=== PATIENT | female | born 1955 | race Caucasian/White ===

== ENCOUNTER 2016-09-08 10:00 | Inpatient (IN) ==
--- NOTE | 2016-09-08 10:51 | EKG Report ---
Stationary ECG Study [facility] ER Test Date: 09/08/2016 10:13:36 AM Pat Name: MATEO DONNELLY Department: Room: Gender: F Shiftman: : 1955 Requested by: Michael Tinoco Order Number: [id number] Reading MD: CORKY DIAZ Intervals [place] Rate: 63 P: 34 AR: 149 QRS: -7 QRSD: 82 T: 78 QT: 398 QTc: 405 Interpretive Statements SINUS RHYTHM LOW QRS VOLTAGE IN CHEST LEADS NONSPECIFIC T WAVE ABNORMALITY Electronically Signed On 09-08-16 18:43:42 CDT by CORKY DIAZ [id number]
[2016-09-08] MEDS ORDERED: NITROGLYCERIN 2% OINT 1 INCH/GM PACK TOP STA (11:01)
[2016-09-08] MEDS ORDERED: MORPHINE 2 MG/1 ML SYRINGE IV STA (11:01)
[2016-09-08] MEDS ORDERED: ASPIRIN 325 MG TABLET PO STA (11:01)
[2016-09-08] MEDS ORDERED: ONDANSETRON 4 MG/2 ML VIAL IV STA (11:01)
[2016-09-08] MEDS ORDERED: ALUM/MAG/SIMETH/LIDO VISC 1:1 30 ML BOTTLE PO STA (11:01)
[2016-09-08 11:14] LABS: Basophils % 0.3 % (0.0-0.8); Eosinophils # 0.1 10*3/uL (0.0-0.87); Eosinophils % 0.7 % (0.00-10.9); Hematocrit 42.1 VOL% (35.7-47.0); Hemoglobin 14.4 GM/DL (12.0-16.0); Immature Granulocytes % 0.1 %; Immature Granulocytes Absolute 0.01 #; Lymphocytes # 2.2 10*3/uL (1.4-4.0); Lymphocytes % 30.2 % (21.3-54.2); Mean Corpuscular HGB Conc 34.2 GM/DL (32-36); Mean Corpuscular Hemoglobin 29 PG (27-34); Mean Corpuscular Volume 83.4 FL (87-102); Mean Platelet Volume 9.4 FL (9.6-12.0); Monocytes # 0.8 10*3/uL (0.11-0.8); Monocytes % 10.6 % (1.7-12.7); Neutrophils # 4.2 10*3/uL (1.4-7.4); Neutrophils % 58.1 % (38.7-73.9); Platelet Count 228 T/CUMM (130-400); Red Blood Count 5.05 MC/CUMM (3.8-5.5); Red Cell Distribution Width 14.1 % (9.3-17.3); White Blood Count 7.3 T/CUMM (4-12)
--- NOTE | 2016-09-08 11:17 | Emergency Department Note ---
Eliot Mcrae Mantricia, am scribing for, and in the presence of, Michael Ventura MD 11:12. Lorenzo Mcrae Charles R, MD, personally performed the services described in this documentation, ascribed by Venu Mccabe in my presence, and it is both accurate and complete . Arrival - Arrival Chief Complaint: Chest Pain Stated Complaint: chest pain,dizzy,nausea ED Nursing Triage Note: Pt c/o left sided chest pain that radiates up to her left jaw and left arm since yesterday afternoon. + vomiting at [address] this [address] Pt saw Dr Polk yesterday and had an echo. pt is scheduled for heart cath next week. Mode of Arrival: Ambulatory Limitations: No Limitations Source: Patient Time Seen by Provider: 09/08/16 10:24 - History of Present Illness HPI Narrative: Pt is a 61 y/o white female arriving to ED by EMS with c/o left sided chest pain that onset yesterday afternoon. She also reports radiation to her left jaw and left arm, dizziness, SOB, sweats, and also vomiting at 0300 this morning. She states that yesterday a light bulb went out in her bathroom and as she was in the chair changing the bulb, her chest begin to hurt. Pt saw Dr. Polk yesterday and had an echo. She is scheduled for a heart cath next Tuesday. Pt has a PMHx of 3 IA and more than 10 stents. Pt is currently on Plavix and Aspirin. She reports no other complaints. Onset (ago): hour(s) Consistency: constant Severity: mild Severity scale (1-10): 3 Date of Last Menstrual Period: Hyst Allergies/Adverse Reactions: Allergies Allergy/AdvReac Type Severity Reaction Status Date / Time ranolazine [From Ranexa] Allergy RASH Verified 09/08/16 10:08 acetaminophen [From Tylox] AdvReac Nausea Verified 09/08/16 10:08 Oxycodone [From Tylox] AdvReac Nausea Verified 09/08/16 10:08 sulfamethoxazole AdvReac RASH Verified 09/08/16 10:08 [From Bactrim] trimethoprim [From Bactrim] AdvReac RASH Verified 09/08/16 10:08 Home Medications: Home Medications Medication Instructions Recorded Confirmed Type Atorvastatin [Lipitor] 40 mg PO BEDTIME 08/27/14 09/08/16 History Cholecalciferol (Vitamin D3) 2,000 unit PO QPM 08/27/14 09/08/16 History [Vitamin D3] Esomeprazole Magnesium [Nexium] 20 mg PO QPM 08/27/14 09/08/16 History Furosemide Tab [Lasix Tab] 20 mg PO BID 08/27/14 09/08/16 History traMADol TAB [Ultram] 50 - 100 mg PO PRN PRN 08/27/14 09/08/16 History Aspirin/Calcium Carbonate/Mag 325 mg PO DAILY #30 tablet 08/29/14 09/08/16 Rx [Aspirin Buffered 325 mg Tab] Escitalopram [Lexapro] 20 mg PO BEDTIME 08/19/15 09/08/16 History Fluticasone Propionate 1 spray BOTH NARES BID 09/08/16 09/08/16 History [Fluticasone 50 mcg Nasal [place]] Nebivolol HCl [Bystolic] 20 mg PO BEDTIME 09/08/16 09/08/16 History Nitroglycerin [Nitroglycerin [place]] 1 spray TRANSLING Q5M PRN MDD 3 09/08/16 History SPRAYS/15 MINUTES dilTIAZem HCl [Cartia XT] 120 mg PO BEDTIME 09/08/16 09/08/16 History dilTIAZem HCl [Cartia XT] 240 mg PO QAM 09/08/16 09/08/16 History Review of System - Review of System 12 point system: reviewed and no additional remarkable complaints except as stated - Review of System Constitutional: Present: other (sweats). Absent: chills, diaphoresis, fever Eyes: Absent: discharge, pain Head/Ears/Nose/Throat: Absent: earache, epistaxis Respiratory: Absent: cough, respiratory distress, wheezing Cardiovascular: Present: chest pain (left sided), dyspnea on exertion. Absent: palpitations Gastrointestinal: Present: vomiting. Absent: abdominal pain, nausea, diarrhea Genitourinary female: Absent: abnormal menses, dysuria Musculoskeletal: Absent: arm pain, back pain, leg pain, neck pain Skin: Absent: rash, lesions Neurological: Present: vertigo. Absent: headache, weakness Medical,Surgical,& Family Hx - Medical History Cardio: History of: CAD (10+ stents), Hypertension, [place] (X2), Cardiovascular Problems No history of: Aneurysm, Cardiac Dysrhythmia, Cerebrovascular Disease, Congenital Heart Disease, CHF, Pacemaker, PVD, Valvular Heart Disease Psychological: No history of: Anxiety Disorders, ADHD, Behavior Problems, Bipolar Disorder, Depression, Previous Suicide Attempt, Psychiatric/Substance Abuse Tx, Schizophrenia, Violent Behavior, Psychiatric Problems Neurology: No history of: Parkinson's Disease, Peripheral Neuropathy, Seizures, TIA, Vertigo, Neurologocal Cancer Endocrine: No history of: Adrenal Disease, Diabetes Mellitus (IDDM), Diabetes Mellitus ( NIDDM), Dyslipidemia, Thyroid Disorder, Endocrine Cancer, Endocrine Problems Rheumatology: History of;: Fibromyalgia Respiratory: No history of: Respiratory Problems Hematology: No history of: Anemia, Bleeding Problems, Clotting Problems, Sickle Cell Disease, Hematologic Cancer, Blood Disorders - Surgical History Cardiac Surgeries: Sugical HX of: Cardiac Catheterization Patient Denies: Femoral-Popliteal Bypass Graft, Cardiac Surgery, Carotid Endarterectomy, Internal Defibrillator, Vascular Access Devices Thoracic Surgeries: Patient denies;: Organ Transplant, Lobectomy Neurologic Surgeries: Patient denies: Neurologic Surgery HEENT Surgeries: Patient denies: Carotid Endarterectomy, Thyroid Surgery Abdominal Surgeries: Surgical HX of: Abdominal Surgery, Cholecystectomy Patient denies: Splenectomy Reproductive Surgeries: Surgical HX of;: Gynecologic Surgery (HYSTERECTOMY), Hysterectomy Patient denies;: Genitourinary Surgery - Social History Smoking Status: Never smoker Frequency of Alcohol Use: None Type of Drug Use: None Exam Vital Signs: Vital Signs Temperature 96.6 F L 09/08/16 10:05 Pulse Rate 66 09/08/16 10:37 Respiratory Rate 18 09/08/16 10:37 Blood Pressure 128/72 09/08/16 10:37 O2 Sat by Pulse Oximetry 97 09/08/16 10:37 - General General appearance: alert, in no apparent distress - Head Head exam: Present: atraumatic, normocephalic, normal inspection - Eye Eye exam: Present: normal appearance, PERRL, EOMI - ENT ENT exam: Present: normal exam, normal oropharynx, mucous membranes moist, TM's normal bilaterally, normal external ear exam - Neck Neck exam: Present: normal inspection, full ROM, trachea midline. Absent: tenderness - Chest Chest inspection: Present: normal inspection, symmetric chest wall rise, tenderness - Respiratory Respiratory exam: Present: normal lung sounds bilaterally - Cardiovascular Cardiovascular exam: Present: regular rate, normal rhythm, normal heart sounds - Abdominal Exam Abdominal exam: Present: soft, normal bowel sounds. Absent: distention, tenderness, guarding, rebound - Extremities Exam Extremities exam: Present: full ROM, normal capillary refill, other (+1 LE edema ). Absent: tenderness - Back Exam Back exam: Present: normal inspection, full ROM. Absent: tenderness - Neurological Exam Neurological exam: Present: alert, oriented X3, CN II-XII intact, normal gait, reflexes normal - Psychiatric Psychiatric exam: Present: normal affect, normal mood - Skin Skin exam: Present: warm, dry, intact, normal color Course - Consultations Consultation #1: Dr. Gallagher will admit patient to the hospital Time: 12:00 Results - Labs CBC & BMP: 09/08/16 11:04 Lab Results: I have reviewed the patients labs Labs: Laboratory Tests 09/08/16 11:04 MCV 83.4 L MPV 9.4 L - Diagnostic Findings Procedure: Chest x-ray: report reviewed by me (No acute cardiopulmonary pathology identified.) Disposition Clinical Impression: Coronary artery disease, Hypertension, Chest pain, Unstable angina pectoris Case discussed with: patient, patient's family Disposition: Still a Patient Condition: Stable Time of Disposition: 12:11
[2016-09-08] MEDS ORDERED: ALUM/MAG/SIMETH/LIDO VISC 1:1 30 ML BOTTLE PO ONE (11:22)
[2016-09-08] MEDS ORDERED: ONDANSETRON 4 MG/2 ML VIAL ONE (11:22)
[2016-09-08] MEDS ORDERED: MORPHINE 2 MG/1 ML SYRINGE ONE (11:22)
[2016-09-08] MEDS ORDERED: NITROGLYCERIN 2% OINT 1 INCH/GM PACK TOP ONE (11:22)
[2016-09-08] MEDS ORDERED: ASPIRIN 325 MG TABLET ONE (11:22)
[2016-09-08 11:23] LABS: PT Patient Result 10.1 SECS
--- NOTE | 2016-09-08 11:29 | XRay Report ---
Portable chest Date: 09/08/2016 Clinical history: Chest pain Comparison: 09/06/2016 Technique: Portable AP sitting chest Findings: The heart is normal in size with calcification of aortic knob. Coronary artery calcifications/stents. Expiratory chest with chronic scarring. Stable mediastinum with degenerative changes. Impression: No acute cardiopulmonary pathology identified. PROCEDURE INTERPRETED AT [facility] DEPARTMENT OF RADIOLOGY Final Report Signed by: Dr. Liv Garcia
[2016-09-08 12:18] LABS: Albumin 4.4 G/DL (3.4-5.0); Bilirubin,Total 0.4 MG/DL (0.2-1.0); Calcium 9.4 MG/DL (8.5-10.1); Osmolality,Calculated 277.5 MOS/KG (273-304); Potassium 3.9 MMOL/L (3.5-5.1); Total Protein 7.7 G/DL (6.4-8.3)
[2016-09-08] MEDS ORDERED: SODIUM CHLORIDE 0.9% 1,000 ML IV SCH (15:44)
[2016-09-08] MEDS ORDERED: POTASSIUM CHLORIDE 20 MEQ TABLET PO PRN (15:44)
[2016-09-08] MEDS ORDERED: MAGNESIUM SULF RIDER 4 GM in PREMIX 1 EACH IV PRN (15:44)
[2016-09-08] MEDS ORDERED: ONDANSETRON 4 MG/2 ML VIAL IV PRN (15:44)
[2016-09-08] MEDS ORDERED: NITROGLYCERIN TRANSLING PRN (15:44)
[2016-09-08] MEDS ORDERED: MAGNESIUM SULF RIDER 2 GM in PREMIX 1 EACH IV PRN ×2 (15:44→16:37)
[2016-09-08] MEDS ORDERED: NITROGLYCERIN SL 0.4 MG TABLET SL PRN (15:59)
--- NOTE | 2016-09-08 16:11 | Cardiology History & Physical ---
<Cate Hinojosa E - Last Filed: 09/08/16 16:12> Assessment and Plan - Time spent with patient Time spent with patient: Greater than 30 minutes (1) Sleep disorder Status: Chronic Assessment and plan: SEE PLAN OF CARE LISTED BELOW Current Visit: Yes (2) Obesity (BMI 30-39.9) Status: Chronic Assessment and plan: SEE PLAN OF CARE LISTED BELOW Current Visit: Yes (3) Chest pain Status: Acute Assessment and plan: SEE PLAN OF CARE LISTED BELOW Current Visit: Yes (4) Coronary artery disease Status: Chronic Assessment and plan: SEE PLAN OF CARE LISTED BELOW Current Visit: Yes (5) Hypertension Status: Chronic Assessment and plan: SEE PLAN OF CARE LISTED BELOW Current Visit: Yes (6) Hyperlipidemia Status: Chronic Assessment and plan: SEE PLAN OF CARE LISTED BELOW Current Visit: No History of Present Illness Chief complaint: Chest pain, known CAD History of present illness: 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 Sung, 61WF, is well-known to me. Routinely followed by Dr. Polk it was last seen in cardiology clinic September 02, 2016 with plans for cardiac catheterization next week. She has a known history of severe coronary artery disease requiring frequent stenting, hypertension, dyslipidemia, obesity, sedentary lifestyle. Last cardiac catheterization occurred August 17, 2015 with the following noted: angioplasty and stenting of mid LAD with drug-eluting stent. Echocardiogram July 2015 reveals: EF 55-60%, mild mitral regurgitation , PAP 27 mmHg. Patient presented to the emergency department at [facility] after experiencing chest pain, shortness of breath, and dizziness while changing a light bulb. Chest discomfort is described as a squeezing sensation in the middle left chest area radiating to her left jaw, left shoulder. It is associated with shortness of breath. Denies diaphoresis or nausea. Rest alleviates the discomfort. She rates the discomfort as a 7 on a scale of 1-10. She has been experiencing intermittent chest discomfort both with exertion and at rest for the past several weeks. The discomfort lasts various amounts of time but on average 3-5 minutes. She was worked into Dr. Polk clinic last week for these symptoms and scheduled for heart catheterization Tuesday of next week. Because of the intensity and increasing frequency of the discomfort , patient that she should be evaluated in the emergency department. She has been housed in our telemetry unit. Her cardiac biomarkers are negative. EKG is unremarkable. Patient does have a complaints of fatigue, no energy. This is worsened over the past 6 months. Patient snores severely, gasps for air while sleeping. She has a Mallampati Airway Class IV, neck circumference greater than [address] Daugherty for evaluation of suspected obstructive sleep apnea. Will discuss further recommendations with Dr. Gallagher. ASSESSMENT/PLAN: 1. CHEST PAIN CONCERNING FOR ANGINA - patient has received aspirin, beta blockade, nitroglycerin and Lovenox. 2. KNOWN CAD REQUIRING MULTIPLE STENTS - will keep her n.p.o. after midnight tonight for cardiac catheterization tomorrow. 3. HYPERTENSION - tolerating beta blockade without problems. In the past she has had palpitations which responded well to diltiazem. We have favored calcium channel kevan as opposed to an ML inhibitor due to her palpitations in the past. 4. DYSLIPIDEMIA - fasting lipid profile in the morning. Continue lipid- lowering agent 5. SLEEP DISORDER CONCERNING FOR SLEEP APNEA - will consult Dr. Daugherty 6. OBESITY - dietary counseling prior to discharge Home Medications Medication Instructions Recorded Confirmed Type Atorvastatin [Lipitor] 40 mg PO BEDTIME 08/27/14 09/08/16 History Cholecalciferol (Vitamin D3) 2,000 unit PO QPM 08/27/14 09/08/16 History [Vitamin D3] Esomeprazole Magnesium [Nexium] 20 mg PO QPM 08/27/14 09/08/16 History Furosemide Tab [Lasix Tab] 20 mg PO BID 08/27/14 09/08/16 History traMADol TAB [Ultram] 50 - 100 mg PO PRN PRN 08/27/14 09/08/16 History Aspirin/Calcium Carbonate/Mag 325 mg PO DAILY #30 tablet 08/29/14 09/08/16 Rx [Aspirin Buffered 325 mg Tab] Escitalopram [Lexapro] 20 mg PO BEDTIME 08/19/15 09/08/16 History Fluticasone Propionate 1 spray BOTH NARES BID 09/08/16 09/08/16 History [Fluticasone 50 mcg Nasal [place]] Nebivolol HCl [Bystolic] 20 mg PO BEDTIME 09/08/16 09/08/16 History Nitroglycerin [Nitroglycerin [place]] 1 spray TRANSLING Q5M PRN MDD 3 09/08/16 History SPRAYS/15 MINUTES dilTIAZem HCl [Cartia XT] 120 mg PO BEDTIME 09/08/16 09/08/16 History dilTIAZem HCl [Cartia XT] 240 mg PO QAM 09/08/16 09/08/16 History Allergies Allergy/AdvReac Type Severity Reaction Status Date / Time ranolazine [From Ranexa] Allergy RASH Verified 09/08/16 10:08 acetaminophen [From Tylox] AdvReac Nausea Verified 09/08/16 10:08 Oxycodone [From Tylox] AdvReac Nausea Verified 09/08/16 10:08 sulfamethoxazole AdvReac RASH Verified 09/08/16 10:08 [From Bactrim] trimethoprim [From Bactrim] AdvReac RASH Verified 09/08/16 10:08 Review of systems: REVIEW OF SYSTEMS: - Constitutional Constitutional: Present: Fatigue. Absent: syncope, anorexia, night sweats. Severe snoring, air hunger when sleeping - EENT Eyes: Absent: blurry vision, loss of vision, diplopia Ears: Absent: decreased hearing, ear pain, ear discharge - Cardiovascular Cardiovascular: Present: chest pain with exertion and at rest. Denies edema. Occasional palpitations. Absent: chest pain with deep breath, claudication - Respiratory Respiratory: Present: MEIER, denies cough. Absent: wheezing, hemoptysis, change in phlegm color - Gastrointestinal Gastrointestinal: Denies: constipation. Absent: abdominal pain, hematemesis, hematochezia, melena, change in bowel habits, nausea - Genitourinary Genitourinary: Absent: difficulty urinating, dysuria, urinary hesitancy, flank pain - Musculoskeletal Musculoskeletal: Present: back pain Absent: joint swelling, muscle cramps, muscle weakness - Neurological Neurological: Present: normal gait without frequent falls. Dizziness. Absent: hemiparesis - Psychiatric Psychiatric: Absent: anxiety, depression, difficulty concentrating - Endocrine Endocrine: Present: fatigue. Absent: cold intolerance, heat intolerance, polyuria, polyphagia, polydipsia - Hematologic/Lymphatic Hematologic/Lymphatic: Present: easy bruising. Absent: easy bleeding -Integumentary Integumentary: Absent: lesions, rashes, skin breakdown Medical,Surgical,& Family Hx - Medical History Cardio: History of: CAD (10+ stents), Hypertension, [place] (X2), Cardiovascular Problems No history of: Aneurysm, Cardiac Dysrhythmia, Cerebrovascular Disease, Congenital Heart Disease, CHF, Pacemaker, PVD, Valvular Heart Disease Psychological: No history of: Anxiety Disorders, ADHD, Behavior Problems, Bipolar Disorder, Depression, Previous Suicide Attempt, Psychiatric/Substance Abuse Tx, Schizophrenia, Violent Behavior, Psychiatric Problems Neurology: No history of: Parkinson's Disease, Peripheral Neuropathy, Seizures, TIA, Vertigo, Neurologocal Cancer Endocrine: No history of: Adrenal Disease, Diabetes Mellitus (IDDM), Diabetes Mellitus ( NIDDM), Dyslipidemia, Thyroid Disorder, Endocrine Cancer, Endocrine Problems Rheumatology: History of;: Fibromyalgia Respiratory: No history of: Respiratory Problems Hematology: No history of: Anemia, Bleeding Problems, Clotting Problems, Sickle Cell Disease, Hematologic Cancer, Blood Disorders - Surgical History Cardiac Surgeries: Sugical HX of: Cardiac Catheterization Patient Denies: Femoral-Popliteal Bypass Graft, Cardiac Surgery, Carotid Endarterectomy, Internal Defibrillator, Vascular Access Devices Thoracic Surgeries: Patient denies;: Organ Transplant, Lobectomy Neurologic Surgeries: Patient denies: Neurologic Surgery HEENT Surgeries: Patient denies: Carotid Endarterectomy, Thyroid Surgery Abdominal Surgeries: Surgical HX of: Abdominal Surgery, Cholecystectomy Patient denies: Splenectomy Reproductive Surgeries: Surgical HX of;: Gynecologic Surgery (HYSTERECTOMY), Hysterectomy Patient denies;: Genitourinary Surgery - Family History Family History: Reports;: Family Heart Disease, Family Hypertension - Social History Smoking Status: Never smoker Have you smoked in the last 12 months: No Frequency of Alcohol Use: None Type of Drug Use: None Marital Status: Lives With:: Spouse Functional capacity: independent ambulation Cardiology Physical Exam - Constitutional Vitals: Vital Signs Temp Pulse Resp BP Pulse Ox 97.8 F 65 18 102/66 93 L 09/08/16 15:45 09/08/16 15:45 09/08/16 15:45 09/08/16 15:45 09/08/16 15:45 Exam: General: [Appears well with no apparent distress.] [Pleasant and cooperative. ] [Appears comfortable.] HEENT: [PERRL, normocephalic, atraumatic. Mucous membranes moist. No jaundice noted. Conjunctiva moist and clear, sclerae anicteric] Mallampati Airway Class IV Neck: Difficult to assess for JVD due to habitus. No thyromegaly. No lymphadenopathy noted. No carotid bruit appreciated Cardiac: [Regular rate and rhythm.] [No obvious murmur, rub or gallop.] Lungs: [Clear to auscultation without accessory muscle use to assist the respiratory pattern.] Requiring oxygen intermittently Abdomen: Soft, bowel sounds normoactive. Nontender and nondistended. No abdominal bruit or thrill noted. No masses noted. Musculoskeletal: No fluid collection. Decreased range of motion is noted. Extremities: No clubbing, cyanosis noted. [ No edema noted.] Upper extremity pulses 2+. Lower extremity pulses 2+. Capillary refill less than 3 seconds. Skin: No unusual lesions or rashes. No skin breakdown appreciated. Neuro: Awake, alert and oriented 3. Moves all extremities well without hemiparesis or paralysis. No essential tremor is appreciated. Result/EKG - Labs CBC & BMP: 09/08/16 11:04 09/08/16 Unknown Lab Results: I have reviewed the past 24 hour labs Labs: Laboratory Results - last 24 hr 09/08/16 Unknown Sodium 139 Potassium 3.9 Chloride 101 Carbon Dioxide 27 Anion Gap 14.9 BUN 13 Creatinine 0.90 GFR Calculation 78 BUN/Creatinine Ratio 14.00 Glucose 121 H Calculated Osmolality 277.5 Calcium 9.4 Total Bilirubin 0.40 AST 24 ALT 36 Alkaline Phosphatase 108 Total Protein 7.7 Albumin 4.4 Globulin 3.3 Albumin/Globulin Ratio 1.3 - Diagnostic Findings Procedure: Chest x-ray: report reviewed by me - EKG EKG results: interpreted by ne EKG shows: sinus rhythm <Kendrick Gallagher - Last Filed: 09/08/16 16:42> History of Present Illness History of present illness: Ms. Sung is a 61 year old female with an extensive history of ischemic heart disease requiring multiple stents as per Dr. Polk. She presents now with chest discomfort and had actually seen Dr. Polk earlier and was scheduled for an elective cardiac catheterization. She presents now with chest pain occurring at rest and we are ruling out acute coronary syndrome. She needs cardiac catheterization this will be arranged for the a.m. She is to notify us for recurring symptoms. She feels better with Nitropaste. Cardiology Physical Exam - Constitutional Vitals: Vital Signs Temp Pulse Resp BP Pulse Ox 97.8 F 65 18 102/66 93 L 09/08/16 15:45 09/08/16 15:45 09/08/16 15:45 09/08/16 15:45 09/08/16 15:45 Result/EKG - Labs CBC & BMP: 09/08/16 11:04 09/08/16 Unknown Labs: Laboratory Results - last 24 hr 09/08/16 Unknown Sodium 139 Potassium 3.9 Chloride 101 Carbon Dioxide 27 Anion Gap 14.9 BUN 13 Creatinine 0.90 GFR Calculation 78 BUN/Creatinine Ratio 14.00 Glucose 121 H Calculated Osmolality 277.5 Calcium 9.4 Total Bilirubin 0.40 AST 24 ALT 36 Alkaline Phosphatase 108 Total Protein 7.7 Albumin 4.4 Globulin 3.3 Albumin/Globulin Ratio 1.3
[2016-09-08] MEDS: MORPHINE 2 MG/1 ML SYRINGE IV PRN ×2 (16:17→22:57)
[2016-09-08] MEDS: NITROGLYCERIN 2% OINT 1 INCH/GM PACK TOP SCH ×3 (16:24→23:07)
[2016-09-08] MEDS ORDERED: POTASSIUM CHLORIDE RIDER 10 MEQ in PREMIX 1 EACH IV PRN (16:37)
--- NOTE | 2016-09-08 17:47 | History and Physical Update ---
Sedation H&P Update - History and Physical H&P was reviewed, the patient examined and there: are no changes in the patients condition since last H&P was completed. - Dictation Physical: refer to H&P completed by admitting physician - Physical Exam Mental Status: alert and oriented Heart: regular rate and rhythm Lung: clear to auscultation Abdomen: within normal limits Vitals: within normal limits - Sedation Plan for Sedation: moderate Patient Consent: Procedure disscussed with patient and patinet has consented., Risks and benefits were discussed with patient,including infection,, bleeding, injury to surrounding structures, seizure, temporary nerve, Patient understands and accepts potential risks/benefits and agrees to, proceed. ASA Class: II Airway Assessment: Class II: Soft palate, uvula, fauces visible
--- NOTE | 2016-09-08 18:00 | EKG Report ---
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
[2016-09-08] MEDS: SODIUM CHLORIDE 0.9% 1,000 ML IV SCH (18:40)
[2016-09-08] MEDS ORDERED: NON-FORMULARY MEDICATION (Esomeprazole Magnesium [Nexium] 20 MG) PO SCH (19:00)
[2016-09-08] MEDS: CHOLECALCIFEROL 1,000 UNIT TABLET PO SCH (19:27)
[2016-09-08] MEDS ORDERED: ENOXAPARIN 100 MG/ML SYRINGE SUBCUT SCH (21:00)
[2016-09-08] MEDS: DILTIAZEM CD 120 MG CAPSULE PO SCH (21:25)
[2016-09-08] MEDS: FLUTICASONE 50 MCG NASAL SPRAY 16 GM BOTTLE BOTH NARES SCH (21:25)
[2016-09-08] MEDS: ATORVASTATIN 40 MG TABLET PO SCH (21:26)
[2016-09-08] MEDS: NEBIVOLOL 10 MG TABLET PO SCH (21:26)
[2016-09-08] MEDS: FUROSEMIDE 20 MG TABLET PO SCH (21:26)
[2016-09-08] MEDS: ESCITALOPRAM 10 MG TABLET PO SCH (21:26)
[2016-09-09] MEDS: SODIUM CHLORIDE 0.9% 1,000 ML IV SCH ×4 (00:25→12:10)
[2016-09-09] MEDS: NITROGLYCERIN 2% OINT 1 INCH/GM PACK TOP SCH ×3 (05:07→17:54)
[2016-09-09 05:35] LABS: Basophils % 0.4 % (0.0-0.8); Eosinophils % 0.5 % (0.00-10.9); Hematocrit 36.9 VOL% (35.7-47.0); Hemoglobin 12.2 GM/DL (12.0-16.0); Immature Granulocytes % 0.4 %; Immature Granulocytes Absolute 0.03 #; Lymphocytes # 2.9 10*3/uL (1.4-4.0); Lymphocytes % 36.2 % (21.3-54.2); Mean Corpuscular HGB Conc 33.1 GM/DL (32-36); Mean Corpuscular Hemoglobin 28 PG (27-34); Mean Corpuscular Volume 84.4 FL (87-102); Mean Platelet Volume 10.1 FL (9.6-12.0); Monocytes # 0.8 10*3/uL (0.11-0.8); Monocytes % 9.6 % (1.7-12.7); Neutrophils # 4.2 10*3/uL (1.4-7.4); Neutrophils % 52.9 % (38.7-73.9); Platelet Count 222 T/CUMM (130-400); Red Blood Count 4.37 MC/CUMM (3.8-5.5)
[2016-09-09] MEDS ORDERED: DIAZEPAM 5 MG TABLET PO ONE (06:00)
[2016-09-09] MEDS ORDERED: diphenhydrAMINE CAP 25 MG CAPSULE PO ONE (06:00)
[2016-09-09 06:18] LABS: Albumin 3.6 G/DL (3.4-5.0); Bilirubin,Total 0.6 MG/DL (0.2-1.0); Calcium 8.6 MG/DL (8.5-10.1); Magnesium 2.2 MG/DL (1.8-2.4); Osmolality,Calculated 280.4 MOS/KG (273-304); Potassium 4.1 MMOL/L (3.5-5.1); Risk Ratio 9.14; Thyroid Stimulating Hormone 2.78 uIU/ml (0.358-3.74); Total Protein 6.4 G/DL (6.4-8.3); VLDL CHOLESTEROL 85.4 MG/DL
[2016-09-09] MEDS ORDERED: LIDOCAINE 1% 20 ML VIAL ONE (06:44)
[2016-09-09] MEDS ORDERED: HEPARIN/NACL 0.9% 2 UNITS/ML 1,000 ML IV ONE (06:44)
--- NOTE | 2016-09-09 07:16 | XRay Report ---
Exam: XR chest 1V portable Date: 09/09/2016 4:00 AM Indication: Shortness of breath Comparison: 09/08/2016 Technical: AP portable Findings: Cardiomegaly present with ASVD. External cardiac leads are present. Patchy interstitial densities present in the bases. No obvious effusions. Mediastinum is intact. Impression: 1. Cardiomegaly and ASVD without overt decompensation with mild basilar atelectasis. PROCEDURE INTERPRETED AT [facility] DEPARTMENT OF RADIOLOGY Final Report Signed by: Dr. Blake Mohamud
[2016-09-09] MEDS ORDERED: HYDROmorphone 2 MG/1 ML VIAL ONE (07:25)
[2016-09-09] MEDS ORDERED: MIDAZOLAM 2 MG/2 ML VIAL ONE (07:25)
--- NOTE | 2016-09-09 07:50 | EKG Report ---
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
--- NOTE | 2016-09-09 08:21 | Cardiac Catheterization ---
Date of Procedure:: 09/09/16 Pre-op Diagnosis: Chest pain status post multiple stent Post-op diagnosis: other (Patent stent sites at this time) Procedure: Cardiac catheterization procedure note #1 left heart catheterization #2 selective coronary angiography #3 left ventriculography Omnipaque was used for the procedure Description of procedure Following sterile preparation draping of the right groin, local anesthesia was achieved by infiltration with 1% Xylocaine. Using a Cook needle the right femoral artery was cannulated and a #6 sheath was inserted. A 6 Nauruan pigtail catheter was introduced and advanced retrograde across aortic valve into the left ventricle and the end-diastolic pressure was recorded. Left ventriculography was performed the LEONARD projection using 24 cc of contrast material. A pullback recording made across phytic valve. The pigtail catheter change for a 6 Nauruan left Florinda catheter and left coronary angiography was performed in several LEONARD and ITALIAN projections. The catheter change for a 6 Nauruan right Amplatz catheter and right coronary angiography was performed in the ITALIAN projection only. The catheter and sheath were then removed and the femoral arteriotomy site was sealed percutaneously minx closure device with prompt cessation of bleeding and prompt return of the femoral and foot pulses. No complications ensued. The patient is transferred back to telemetry in stable condition. Hemodynamic data Aortic pressure 133/50 mean of 84 Left ventricle 133/20 Selective coronary angiography The left main trunk is widely patent bifurcates. The LAD is a moderate-sized vessel that wraps around the apex. There are multiple stents throughout the proximal and mid segment of the vessel which remain patent. The 2 diagonal branches are small and patent. There is a 40% narrowing in the main trunk of the circumflex and the mid vessel stent site is widely patent. The dominant right coronary artery has a widely patent mid vessel stent site. Left ventriculography Ejection fraction 55%. No mitral regurgitation. Conclusion #1 increased LVEDP 20 #2 ejection fraction 55% #3 no mitral regurgitation #4 no aortic valve gradient #5 left main trunk-widely patent #6 LAD widely patent multiple stent sites throughout the proximal -mid segment of the vessel #7 2 diagonal-patent #8 circumflex-40% main trunk stenosis with widely patent mid vessel stent site #9 dominant right coronary-widely patent mid vessel stent site Disposition The patient has widely patent stent sites in all 3 vessels. There is been no significant disease progression since her last cath November 2015. She remains well revascularized. Ventricular function preserved EF 55%. Continued medical therapy and risk factor modification recommended. Cine pictures were reviewed with the patient's Buster and with her daughter Selam. Dr. Daugherty to evaluate for obstructive sleep apnea Implants: No implants Anesthesia: moderate conscious sedation Surgeon / Physician: Amandeep Barrios Estimated blood loss: minimal Condition: stable Disposition: floor - Medications / Follow-up
[2016-09-09] MEDS: PANTOPRAZOLE 40 MG TABLET PO SCH (09:49)
[2016-09-09] MEDS: FUROSEMIDE 20 MG TABLET PO SCH ×2 (09:49→20:44)
[2016-09-09] MEDS: DILTIAZEM CD 240 MG CAPSULE PO SCH (09:49)
[2016-09-09] MEDS: FLUTICASONE 50 MCG NASAL SPRAY 16 GM BOTTLE BOTH NARES SCH ×2 (09:49→20:48)
[2016-09-09] MEDS: ASPIRIN 325 MG TABLET PO SCH (09:49)
--- NOTE | 2016-09-09 12:34 | Sleep Medicine Consult ---
Assessment and Plan (1) Sleep disorder Status: Chronic Assessment and plan: This patient certainly has symptoms quite concerning for sleep apnea. She has a history of loud snoring and abnormal breathing during sleep. With the severity of her symptoms and her coronary artery disease, polysomnography is indicated. She resides in the [facility] and we will set her up for sleep study evaluation at the [facility] sleep center as soon as possible. Thank you for this consult and the opportunity to participate in her care. Current Visit: Yes (2) Hypertension Status: Chronic Assessment and plan: The prevalence rate for obstructive sleep apnea patients with hypertension is 35 %. That rate can be as high as 80% in patients who require 4 or more medications for blood pressure control. Current Visit: Yes (3) Coronary artery disease Status: Chronic Assessment and plan: I reviewed the [place] data from Lancet 2004 with the patient to their understanding. This study proved significant reduction in the risk of fatal and nonfatal cardiac events in patients with severe obstructive sleep apnea compliant with CPAP, in comparison with those noncompliant with CPAP for severe sleep apnea. Current Visit: Yes History of Present Illness Chief complaint: Sleep apnea History of present illness: Ms. Sung is a 61 year old female admitted with chest pain. She has a history of coronary artery disease. She was admitted and sleep medicine was consulted. She has a history of loud snoring is disruptive to sleep. She has never been told that she stops breathing during her sleep. She will awaken from sleep short of breath. She has difficulty maintaining sleep and does have frequent awakenings related to need to urinate. She estimates that this occurs up to 3-4 times a night. She does sometimes have restlessness of her legs and discomfort of her legs. She does swell in her lower extremities and is bothered by daytime fatigue and sleepiness. Home Medications Medication Instructions Recorded Confirmed Type Atorvastatin [Lipitor] 40 mg PO BEDTIME 08/27/14 09/08/16 History Cholecalciferol (Vitamin D3) 2,000 unit PO QPM 08/27/14 09/08/16 History [Vitamin D3] Esomeprazole Magnesium [Nexium] 20 mg PO QPM 08/27/14 09/08/16 History Furosemide Tab [Lasix Tab] 20 mg PO BID 08/27/14 09/08/16 History traMADol TAB [Ultram] 50 - 100 mg PO PRN PRN 08/27/14 09/08/16 History Aspirin/Calcium Carbonate/Mag 325 mg PO DAILY #30 tablet 08/29/14 09/08/16 Rx [Aspirin Buffered 325 mg Tab] Escitalopram [Lexapro] 20 mg PO BEDTIME 08/19/15 09/08/16 History Fluticasone Propionate 1 spray BOTH NARES BID 09/08/16 09/08/16 History [Fluticasone 50 mcg Nasal [place]] Nebivolol HCl [Bystolic] 20 mg PO BEDTIME 09/08/16 09/08/16 History Nitroglycerin [Nitroglycerin [place]] 1 spray TRANSLING Q5M PRN MDD 3 09/08/16 History SPRAYS/15 MINUTES dilTIAZem HCl [Cartia XT] 120 mg PO BEDTIME 09/08/16 09/08/16 History dilTIAZem HCl [Cartia XT] 240 mg PO QAM 09/08/16 09/08/16 History Allergies Allergy/AdvReac Type Severity Reaction Status Date / Time ranolazine [From Ranexa] Allergy RASH Verified 09/08/16 10:08 acetaminophen [From Tylox] AdvReac Nausea Verified 09/08/16 10:08 Oxycodone [From Tylox] AdvReac Nausea Verified 09/08/16 10:08 sulfamethoxazole AdvReac RASH Verified 09/08/16 10:08 [From Bactrim] trimethoprim [From Bactrim] AdvReac RASH Verified 09/08/16 10:08 Review of systems: Otherwise unremarkable from a sleep medicine standpoint Exam (Pulmonay) H&P - Constitutional Vitals: Period Temp Pulse Resp BP Sys/Chapin Pulse Ox Last 24 Hr 97.0 F-98.2 F 59-78 14-23 94-128/49-84 89-96 Exam: She is alert and responsive in no acute distress. Pupils equal round reactive to light and accommodation. Extraocular movements intact. Oropharynx with a class IV Mallampati exam. Neck supple without adenopathy or thyromegaly. Chest with good breath sounds without focal wheeze or rhonchi. Cardiac exam reveals a regular rhythm without murmur or gallop. Abdomen obese nontender without palpable hepatosplenomegaly or mass. Extremities are without clubbing, cyanosis, or edema. Neurologically, she is grossly intact. She moves all extremities with good strength. Medical,Surgical,& Family Hx - Medical History Cardio: History of: CAD (10+ stents), Hypertension, MT (X2), Cardiovascular Problems No history of: Aneurysm, Cardiac Dysrhythmia, Cerebrovascular Disease, Congenital Heart Disease, CHF, Pacemaker, PVD, Valvular Heart Disease Psychological: No history of: Anxiety Disorders, ADHD, Behavior Problems, Bipolar Disorder, Depression, Previous Suicide Attempt, Psychiatric/Substance Abuse Tx, Schizophrenia, Violent Behavior, Psychiatric Problems Neurology: No history of: Parkinson's Disease, Peripheral Neuropathy, Seizures, TIA, Vertigo, Neurologocal Cancer Endocrine: No history of: Adrenal Disease, Diabetes Mellitus (IDDM), Diabetes Mellitus ( NIDDM), Dyslipidemia, Thyroid Disorder, Endocrine Cancer, Endocrine Problems Rheumatology: History of;: Fibromyalgia Respiratory: No history of: Respiratory Problems Hematology: No history of: Anemia, Bleeding Problems, Clotting Problems, Sickle Cell Disease, Hematologic Cancer, Blood Disorders - Surgical History Cardiac Surgeries: Sugical HX of: Cardiac Catheterization Patient Denies: Femoral-Popliteal Bypass Graft, Cardiac Surgery, Carotid Endarterectomy, Internal Defibrillator, Vascular Access Devices Thoracic Surgeries: Patient denies;: Organ Transplant, Lobectomy Neurologic Surgeries: Patient denies: Neurologic Surgery HEENT Surgeries: Patient denies: Carotid Endarterectomy, Thyroid Surgery Abdominal Surgeries: Surgical HX of: Abdominal Surgery, Cholecystectomy Patient denies: Splenectomy Reproductive Surgeries: Surgical HX of;: Gynecologic Surgery (HYSTERECTOMY), Hysterectomy Patient denies;: Genitourinary Surgery - Family History Family History: Reports;: Family Heart Disease, Family Hypertension - Social History Smoking Status: Never smoker Frequency of Alcohol Use: None Type of Drug Use: None Results - Labs CBC & BMP: 09/09/16 04:16 09/09/16 04:16 Lab Results: I have reviewed the past 24 hour labs Labs: TSH within normal limits. Quality Measures - VTE Contraindication to Mechanical VTE Prophylaxis: Trauma to Legs
[2016-09-09] MEDS ORDERED: SODIUM CHLORIDE 0.9% 1,000 ML IV SCH (14:13)
[2016-09-09] MEDS: MORPHINE 2 MG/1 ML SYRINGE IV PRN (19:42)
[2016-09-09] MEDS: NEBIVOLOL 10 MG TABLET PO SCH (20:43)
[2016-09-09] MEDS: CHOLECALCIFEROL 1,000 UNIT TABLET PO SCH (20:43)
[2016-09-09] MEDS: ATORVASTATIN 40 MG TABLET PO SCH (20:43)
[2016-09-09] MEDS: DILTIAZEM CD 120 MG CAPSULE PO SCH (20:44)
[2016-09-09] MEDS: ESCITALOPRAM 10 MG TABLET PO SCH (20:44)
[2016-09-10] MEDS: NITROGLYCERIN 2% OINT 1 INCH/GM PACK TOP SCH ×2 (00:21→06:08)
[2016-09-10 06:01] LABS: Calcium 9.1 MG/DL (8.5-10.1); Osmolality,Calculated 280.1 MOS/KG (273-304); Potassium 4.1 MMOL/L (3.5-5.1)
[2016-09-10] MEDS: ASPIRIN 325 MG TABLET PO SCH (10:04)
[2016-09-10] MEDS: PANTOPRAZOLE 40 MG TABLET PO SCH (10:04)
[2016-09-10] MEDS: FUROSEMIDE 20 MG TABLET PO SCH (10:04)
[2016-09-10] MEDS: FLUTICASONE 50 MCG NASAL SPRAY 16 GM BOTTLE BOTH NARES SCH (10:05)
[2016-09-10] MEDS: DILTIAZEM CD 240 MG CAPSULE PO SCH (10:05)
[2016-09-10] MEDS ORDERED: GABAPENTIN 100 MG CAPSULE PO SCH (10:55)
--- NOTE | 2016-09-10 10:58 | Discharge Summary ---
Hospital Course - Hospital Course Hospital Course: WEED CONTROLLER: DR. YANA POLK SEPTEMBER 08, 2016 Ms. Sung presented to the emergency department at [facility] with complaints of chest pain, shortness of breath, jaw pain. She has history of known coronary artery disease. She was scheduled for elective cardiac catheterization next week by Dr. Polk for exploration of the symptoms. However, the pain increased in intensity and frequency. For these reasons, she sought medical advice. During this hospital stay, she underwent elective cardiac catheterization performed by Dr. Barrios. Identified was the following: Conclusion #1 increased LVEDP 20 #2 ejection fraction 55% #3 no mitral regurgitation #4 no aortic valve gradient #5 left main trunk-widely patent #6 LAD widely patent multiple stent sites throughout the proximal -mid segment of the vessel #7 2 diagonal-patent #8 circumflex-40% main trunk stenosis with widely patent mid vessel stent site #9 dominant right coronary-widely patent mid vessel stent site Disposition The patient has widely patent stent sites in all 3 vessels. There is been no significant disease progression since her last cath November 2015. She remains well revascularized. Ventricular function preserved EF 55%. Continued medical therapy and risk factor modification recommended. Cine pictures were reviewed with the patient's Buster and with her daughter Selam. She tolerated the procedure well without complication was returned to the telemetry unit in stable condition. Dr. Daugherty was consulted for evaluation of sleep apnea. He has scheduled her for outpatient stress testing within the next few weeks. Having felt him at maximal medical therapy, patient is being discharged home in stable condition. She will be given a 2-3 week follow-up with Dr. Polk. She will continue her preadmission medications. New medications will be the following: Isosorbide mononitrate 50 mg orally daily. She may take Tylenol 500 mg to 1000 mg 30 minutes prior to isosorbide if she is beginning to experience headache. ( I believe she is tried Ranexa in the past and had significant side effects). Neurontin 100 mg orally 3 times daily 1 week She will continue Ultram 100 mg orally twice daily (HOME MEDICATION) Acetaminophen 325 mg orally twice daily 1 week - Time spent with patient Time with patient DS: Greater than 30 minutes Diagnosis - Discharge Diagnosis (1) Sleep disorder Status: Chronic (2) Obesity (BMI 30-39.9) Status: Chronic (3) Chest pain Status: Resolved (4) Coronary artery disease Status: Chronic (5) Hypertension Status: Chronic (6) Hyperlipidemia Status: Chronic Specialty Discharge - Follow Up or Referrals Follow up with: Yana Polk MD [Physician] - (2-3 weeks) Discharge Plan - Discharge Data Disposition: Disch To Home/Self Care Condition at Discharge: Stable Discharge Diet: heart healthy Activity: other (Post cath expectations) Hygiene: other (Post cath expectations) Weight Bearing at Discharge: other (Post cath expectations) Driving: not until seen by doctor Contact your physician if you experience:: fever over 101, Difficulty voiding, Redness or swelling, Nausea/Vomiting, Shortness of breath, Bleeding, pain uncontrolled by pain medications - Discharge Medications [place] Cap/Tab [Neurontin Cap/Tab] 100 mg PO TID #21 capsule Acetaminophen Tab [Tylenol Tab] 325 mg PO BID #14 tablet Isosorbide Mononitrate [Imdur] 15 mg PO DAILY #30 tablet Continue traMADol TAB [Ultram] 50 - 100 mg PO PRN PRN PRN Reason: Pain Esomeprazole Magnesium [Nexium] 20 mg PO QPM Atorvastatin [Lipitor] 40 mg PO BEDTIME Furosemide Tab [Lasix Tab] 20 mg PO BID Cholecalciferol (Vitamin D3) [Vitamin D3] 2,000 unit PO QPM Aspirin/Calcium Carbonate/Mag [Aspirin Buffered 325 mg Tab] 325 mg PO DAILY # 30 tablet Escitalopram [Lexapro] 20 mg PO BEDTIME dilTIAZem HCl [Cartia XT] 120 mg PO BEDTIME dilTIAZem HCl [Cartia XT] 240 mg PO QAM Nitroglycerin [Nitroglycerin [place]] 1 spray TRANSLING Q5M PRN MDD 3 SPRAYS/ 15 MINUTES PRN Reason: Chest Pain Fluticasone Propionate [Fluticasone 50 mcg Nasal [place]] 1 spray BOTH NARES BID Nebivolol HCl [Bystolic] 20 mg PO BEDTIME - Follow Up or Referral - Forms/Instructions Exam - Constitutional Vitals: Period Temp Pulse Resp BP Sys/Chapin Pulse Ox Last 24 Hr 98.1 F-99.1 F 59-73 16-20 92-132/50-62 90-97 Exam: General: [Appears well with no apparent distress.] [Pleasant and cooperative. ] [Appears comfortable.] HEENT: [PERRL, normocephalic, atraumatic. Mucous membranes moist. No jaundice noted. Conjunctiva moist and clear, sclerae anicteric] Neck: No JVD/HJR, no thyromegaly or lymphadenopathy noted. No carotid bruit appreciated Cardiac: [Regular rate and rhythm.] [No murmur rub or gallop.] Lungs: [Clear to auscultation without accessory muscle use to assist the respiratory pattern.] Not requiring oxygen Abdomen: Soft, bowel sounds normoactive. Nontender and nondistended. No abdominal bruit or thrill noted. No masses noted. Musculoskeletal: No fluid collection. Decreased range of motion is noted. Extremities: Right groin soft, free of hematoma or bruit. No clubbing, cyanosis noted. [ No edema noted.] Upper extremity pulses 2+. Lower extremity pulses 2+. Capillary refill less than 3 seconds. Skin: No unusual lesions or rashes. No skin breakdown appreciated. Neuro: Awake, alert and oriented 3. Moves all extremities well without hemiparesis or paralysis. No essential tremor is appreciated. Discharge Results Procedures and tests throughout hospitalization: Pending Orders 09/11/16 04:00 CL heart IN AM Labs on day of discharge: Labs from last 24 hours 09/10/16 04:27 Sodium 142 Potassium 4.1 Chloride 104 Carbon Dioxide 28 Anion Gap 14.1 BUN 8 Creatinine 0.70 GFR Calculation 106 BUN/Creatinine Ratio 11.00 Glucose 107 H Calculated Osmolality 280.1 Calcium 9.1 - Imaging and Cardiology Cardiology Procedure: report reviewed by Procedure: Chest x-ray: report reviewed by DS: Provider Date of admission: 09/08/16 12:20 Primary care physician: Dmitry Fuller Attending physician on admission: Kendrick Gallagher MD Consults: 09/08/16 16:32 Consult to Sleep Center [CONS] Routine Reason for Sleep Center: Sleep Center Physician Consult Comment: Suspected obstructive sleep apnea 09/09/16 08:22 Consult to Cardiac Rehabilitation [CONS] Routine Reason for Cardiac Rehabilitation: Risk Factor Modification Discharging clinician: Cate Hinojosa NP Expected date of discharge: 09/10/16
[2016-09-10] MEDS ORDERED: ISOSORBIDE MONONITRATE 30 MG TABLET PO SCH (11:00)
[2016-09-10] MEDS ORDERED: ACETAMINOPHEN 325 MG TABLET PO SCH (11:00)
[2016-09-10 11:47] VITALS: BP 126/64
== END 2016-09-10 13:10 | disposition home or self-care (01) | DRG 287 ==
LOC: N.ED 10:00 → N.EDINP 12:20 → N.TELES 15:32
PROVIDERS: ADMIT Internal Medicine Interventional Cardiology; ATTEND Internal Medicine Interventional Cardiology
PROC: CLCCHCL (ICD-10-PCS; 2016-09-09 07:45)

== ENCOUNTER 2020-01-29 06:07 | Observation (INO) ==
[~2020-01-29 06:07] MED LIST: ASPIRIN 325 MG TABLET PO ONE; DIAZEPAM 5 MG TABLET PO ONE; MAGNESIUM SULF RIDER 2 GM in PREMIX 1 EACH IV PRN; POTASSIUM CHLORIDE RIDER 10 MEQ in PREMIX 1 EACH IV PRN; diphenhydrAMINE CAP 25 MG CAPSULE PO ONE
[2020-01-29] MEDS ORDERED: DIAZEPAM 5 MG TABLET ONE (07:31)
[2020-01-29] MEDS ORDERED: diphenhydrAMINE CAP 25 MG CAPSULE ONE (07:31)
[2020-01-29] MEDS ORDERED: ASPIRIN 325 MG TABLET ONE (07:32)
[2020-01-29] MEDS: SODIUM CHLORIDE 0.9% 1,000 ML IV SCH ×2 (07:34→17:34)
[2020-01-29] MEDS ORDERED: ceFAZolin 1,000 MG VIAL ONE (08:25)
[2020-01-29] MEDS ORDERED: HEPARIN/NACL 0.9% 2 UNITS/ML 1,000 ML IV ONE (08:25)
[2020-01-29] MEDS ORDERED: LIDOCAINE 1% 20 ML VIAL ONE ×2 (08:25→10:11)
[2020-01-29] MEDS ORDERED: ceFAZolin 1,000 MG in SYRINGE 1 EACH IV ONE (08:26)
[2020-01-29] MEDS ORDERED: NITROGLYCERIN DRIP 50 MG/250 ML BOTTLE IV ONE (08:51)
[2020-01-29] MEDS ORDERED: MIDAZOLAM 2 MG/2 ML VIAL ONE ×3 (08:51→10:05)
[2020-01-29] MEDS ORDERED: fentaNYL 100 MCG/2 ML VIAL ONE ×2 (08:52→10:05)
[2020-01-29] MEDS ORDERED: VERAPAMIL 5 MG/2 ML VIAL ONE (08:52)
[2020-01-29] MEDS ORDERED: HEPARIN 5,000 UNIT/1 ML VIAL ONE (09:23)
[2020-01-29] MEDS ORDERED: BIVALIRUDIN 250 MG VIAL IV ONE (10:09)
[2020-01-29] MEDS ORDERED: HEPARIN/NACL 0.9% 2 UNITS/ML 500 ML IV ONE (10:11)
[2020-01-29] MEDS ORDERED: METOPROLOL TARTRATE 5 MG/5 ML VIAL IV ONE (10:52)
[2020-01-29] MEDS ORDERED: CLOPIDOGREL 300 MG TABLET ONE (11:25)
[2020-01-29] MEDS ORDERED: ZALEPLON 5 MG CAPSULE PO PRN (11:26)
[2020-01-29] MEDS ORDERED: NITROGLYCERIN SL PRN (11:26)
[2020-01-29] MEDS ORDERED: ONDANSETRON 4 MG/2 ML VIAL IV PRN (11:26)
[2020-01-29] MEDS ORDERED: ACETAMINOPHEN 325 MG TABLET PO PRN (11:26)
[2020-01-29] MEDS ORDERED: INFLUENZA VIRUS VACCINE 0.5 ML SYRINGE IM ONE (14:45)
[2020-01-29] MEDS ORDERED: PNEUMOCOCCAL VACCINE (13 VALENT) 0.5 ML SYRINGE IM ONE (14:45)
[2020-01-29] MEDS: NEBIVOLOL 10 MG TABLET PO SCH (20:57)
[2020-01-29] MEDS: DILTIAZEM CD 120 MG CAPSULE PO SCH (20:57)
[2020-01-29] MEDS: CHOLECALCIFEROL 1,000 UNIT TABLET PO SCH (20:57)
[2020-01-29] MEDS: ESCITALOPRAM 10 MG TABLET PO SCH (20:57)
[2020-01-29] MEDS: GABAPENTIN 300 MG CAPSULE PO SCH (20:57)
[2020-01-29] MEDS: traMADol 50 MG TABLET PO PRN (20:58)
[2020-01-29] MEDS: PANTOPRAZOLE 40 MG TABLET PO SCH (20:58)
[2020-01-29] MEDS ORDERED: ATORVASTATIN 40 MG TABLET PO SCH (21:00)
[2020-01-30] MEDS: NITROGLYCERIN SL 0.4 MG TABLET SL PRN ×3 (03:13→03:31)
[2020-01-30] MEDS: MORPHINE 4 MG/1 ML VIAL IV PRN ×3 (04:19→16:51)
[2020-01-30] MEDS: SODIUM CHLORIDE 0.9% 1,000 ML IV SCH (06:03)
[2020-01-30 06:30] LABS: Basophils % 0.4 % (0.0-0.8); Eosinophils % 0.5 % (0.00-10.9); Hemoglobin 12.9 GM/DL (12.0-16.0); Immature Granulocytes % 0.5 %; Immature Granulocytes Absolute 0.03 #; Lymphocytes # 1.6 10*3/uL (1.4-4.0); Lymphocytes % 27.3 % (21.3-54.2); Mean Corpuscular HGB Conc 33.1 GM/DL (32-36); Mean Corpuscular Volume 84.4 FL (87-102); Mean Platelet Volume 9.7 FL (9.6-12.0); Monocytes % 11.8 % (1.7-12.7); Neutrophils % 59.5 % (38.7-73.9); Platelet Count 169 T/CUMM (130-400); Red Blood Count 4.62 MC/CUMM (3.8-5.5); Red Cell Distribution Width 13.6 % (9.3-17.3); White Blood Count 5.7 T/CUMM (4-12)
[2020-01-30 06:53] LABS: Calcium 8.9 MG/DL (8.5-10.1); Osmolality,Calculated 276.2 MOS/KG (273-304); Risk Ratio 10.32; VLDL CHOLESTEROL 72.2 MG/DL
[2020-01-30] MEDS: CLOPIDOGREL 75 MG TABLET PO SCH (09:44)
[2020-01-30] MEDS: GABAPENTIN 300 MG CAPSULE PO SCH ×2 (09:44→21:51)
[2020-01-30] MEDS: busPIRone 10 MG TABLET PO SCH (09:44)
[2020-01-30] MEDS: DILTIAZEM CD 120 MG CAPSULE PO SCH ×2 (09:44→21:51)
[2020-01-30] MEDS: ASPIRIN 325 MG TABLET PO SCH (09:44)
[2020-01-30] MEDS: FUROSEMIDE 40 MG TABLET PO SCH (09:45)
[2020-01-30 10:31] LABS: Troponin I 0.019 NG/ML (0.00-0.045)
[2020-01-30] MEDS ORDERED: ALUM/MAG/SIMETH/LIDO VISC 1:1 30 ML BOTTLE PO ONE (11:12)
[2020-01-30] MEDS: INSULIN REGULAR 100 UNIT/ML SUBCUT SCH ×3 (12:30→22:11)
[2020-01-30 13:05] LABS: Basophils % 0.4 % (0.0-0.8); Eosinophils % 0.5 % (0.00-10.9); Hematocrit 40.6 VOL% (35.7-47.0); Hemoglobin 13.5 GM/DL (12.0-16.0); Immature Granulocytes % 0.5 %; Immature Granulocytes Absolute 0.03 #; Lymphocytes # 1.8 10*3/uL (1.4-4.0); Lymphocytes % 31.1 % (21.3-54.2); Mean Corpuscular HGB Conc 33.3 GM/DL (32-36); Mean Corpuscular Volume 84.9 FL (87-102); Mean Platelet Volume 9.2 FL (9.6-12.0); Monocytes % 10.5 % (1.7-12.7); Platelet Count 189 T/CUMM (130-400); Red Blood Count 4.78 MC/CUMM (3.8-5.5); Red Cell Distribution Width 13.7 % (9.3-17.3); White Blood Count 5.7 T/CUMM (4-12)
[2020-01-30 13:25] LABS: Troponin I 0.018 NG/ML (0.00-0.045)
[2020-01-30] MEDS: ISOSORBIDE MONONITRATE 30 MG TABLET PO SCH (14:24)
[2020-01-30 16:40] LABS: Troponin I < 0.015 NG/ML (0.00-0.045)
[2020-01-30 17:13] LABS: Bacteria,Urine Occasional /HPF (Few); Bilirubin,Urine Negative (Negative); Blood, Urine Negative (Negative); Glucose,Urine (UA) >=500 mg/dL (Negative); Ketones,Urine Negative (Negative); Nitrite,Urine Negative (Negative); Protein,Urine Negative; RBC,Urine 1 /HPF (0-4); Squamous Epithelial Cell,Urine Occasional /HPF (0-10); Urine Appearance CLEAR (Clear); Urine Color Straw (Yellow); Urine Specific Gravity 1.015 (1.001-1.035); Urine Urobilinogen < 2.0 EU/DL (0.2-1.0); WBC,Urine 2 /HPF (0-6)
[2020-01-30] MEDS: ATORVASTATIN 40 MG TABLET PO SCH (21:51)
[2020-01-30] MEDS: PANTOPRAZOLE 40 MG TABLET PO SCH (21:52)
[2020-01-30] MEDS: ESCITALOPRAM 10 MG TABLET PO SCH (21:52)
[2020-01-30] MEDS: CHOLECALCIFEROL 1,000 UNIT TABLET PO SCH (21:52)
[2020-01-30] MEDS: NEBIVOLOL 10 MG TABLET PO SCH (21:52)
[2020-01-30] MEDS: traMADol 50 MG TABLET PO PRN (21:55)
[2020-01-31] MEDS: MORPHINE 4 MG/1 ML VIAL IV PRN ×2 (00:07→15:48)
[2020-01-31 05:30] LABS: Basophils % 0.5 % (0.0-0.8); Eosinophils % 0.5 % (0.00-10.9); Hematocrit 37.9 VOL% (35.7-47.0); Hemoglobin 12.8 GM/DL (12.0-16.0); Immature Granulocytes % 0.2 %; Immature Granulocytes Absolute 0.01 #; Lymphocytes # 2.2 10*3/uL (1.4-4.0); Lymphocytes % 38.1 % (21.3-54.2); Mean Corpuscular HGB Conc 33.8 GM/DL (32-36); Mean Corpuscular Volume 83.5 FL (87-102); Mean Platelet Volume 9.5 FL (9.6-12.0); Monocytes % 14.2 % (1.7-12.7); Neutrophils % 46.5 % (38.7-73.9); Platelet Count 168 T/CUMM (130-400); Red Blood Count 4.54 MC/CUMM (3.8-5.5); Red Cell Distribution Width 13.4 % (9.3-17.3); White Blood Count 5.7 T/CUMM (4-12)
[2020-01-31 05:49] LABS: Calcium 9.1 MG/DL (8.5-10.1); Osmolality,Calculated 275.4 MOS/KG (273-304)
[2020-01-31] MEDS: INSULIN REGULAR 100 UNIT/ML SUBCUT SCH ×4 (08:30→21:27)
[2020-01-31] MEDS: busPIRone 10 MG TABLET PO SCH (09:34)
[2020-01-31] MEDS: FUROSEMIDE 40 MG TABLET PO SCH (09:34)
[2020-01-31] MEDS: DILTIAZEM CD 120 MG CAPSULE PO SCH ×2 (09:34→21:13)
[2020-01-31] MEDS: ISOSORBIDE MONONITRATE 30 MG TABLET PO SCH (09:34)
[2020-01-31] MEDS: GABAPENTIN 300 MG CAPSULE PO SCH ×2 (09:34→21:12)
[2020-01-31] MEDS: CLOPIDOGREL 75 MG TABLET PO SCH (09:34)
[2020-01-31] MEDS: ASPIRIN 325 MG TABLET PO SCH (09:34)
[2020-01-31] MEDS: NEBIVOLOL 10 MG TABLET PO SCH (21:12)
[2020-01-31] MEDS: ESCITALOPRAM 10 MG TABLET PO SCH (21:12)
[2020-01-31] MEDS: CHOLECALCIFEROL 1,000 UNIT TABLET PO SCH (21:12)
[2020-01-31] MEDS: PANTOPRAZOLE 40 MG TABLET PO SCH (21:13)
[2020-01-31] MEDS: traMADol 50 MG TABLET PO PRN (21:13)
[2020-01-31] MEDS: ATORVASTATIN 40 MG TABLET PO SCH (21:21)
[2020-02-01 06:13] LABS: Basophils % 0.3 % (0.0-0.8); Eosinophils % 0.4 % (0.00-10.9); Hematocrit 39.9 VOL% (35.7-47.0); Hemoglobin 13.3 GM/DL (12.0-16.0); Immature Granulocytes % 0.3 %; Immature Granulocytes Absolute 0.02 #; Lymphocytes # 2.6 10*3/uL (1.4-4.0); Lymphocytes % 36.4 % (21.3-54.2); Mean Corpuscular HGB Conc 33.3 GM/DL (32-36); Mean Corpuscular Volume 83.6 FL (87-102); Mean Platelet Volume 9.8 FL (9.6-12.0); Monocytes % 10.5 % (1.7-12.7); Neutrophils % 52.1 % (38.7-73.9); Platelet Count 175 T/CUMM (130-400); Red Blood Count 4.77 MC/CUMM (3.8-5.5); Red Cell Distribution Width 13.4 % (9.3-17.3); White Blood Count 7.1 T/CUMM (4-12)
[2020-02-01 06:36] LABS: Calcium 9.1 MG/DL (8.5-10.1); Osmolality,Calculated 276.2 MOS/KG (273-304)
[2020-02-01] MEDS ORDERED: metFORMIN 500 MG TABLET PO SCH (09:00)
[2020-02-01] MEDS ORDERED: POTASSIUM CHLORIDE 20 MEQ TABLET PO ONE (09:41)
[2020-02-01] MEDS: ASPIRIN 325 MG TABLET PO SCH (09:55)
[2020-02-01] MEDS: ISOSORBIDE MONONITRATE 30 MG TABLET PO SCH (09:55)
[2020-02-01] MEDS: GABAPENTIN 300 MG CAPSULE PO SCH (09:56)
[2020-02-01] MEDS: FUROSEMIDE 40 MG TABLET PO SCH (09:56)
[2020-02-01] MEDS: CLOPIDOGREL 75 MG TABLET PO SCH (09:56)
[2020-02-01] MEDS: INSULIN REGULAR 100 UNIT/ML SUBCUT SCH (09:56)
[2020-02-01] MEDS: DILTIAZEM CD 120 MG CAPSULE PO SCH (09:57)
[2020-02-01] MEDS: busPIRone 10 MG TABLET PO SCH (09:58)
[2020-02-01 12:15] VITALS: BP 129/68
== END 2020-02-01 13:15 | disposition home or self-care (01) ==
LOC: N.CL 06:07 → N.TELEN 06:07 → N.CL 06:15 → N.TELEN 14:28
PROVIDERS: ADMIT Internal Medicine Cardiovascular Disease; ATTEND Internal Medicine Cardiovascular Disease
PROC: CLCCHCL (ICD-10-PCS; 2020-01-29 09:15)

== ENCOUNTER 2021-02-03 10:53 | Observation (INO) ==
[2021-02-03 11:23] LABS: Basophils % 0.3 % (0.0-0.8); Eosinophils # 0.1 10*3/uL (0.0-0.87); Eosinophils % 0.8 % (0.00-10.9); Hematocrit 37.4 VOL% (35.7-47.0); Hemoglobin 12.3 GM/DL (12.0-16.0); Immature Granulocytes % 0.4 %; Immature Granulocytes Absolute 0.03 #; Lymphocytes # 2.4 10*3/uL (1.4-4.0); Lymphocytes % 33.5 % (21.3-54.2); Mean Corpuscular HGB Conc 32.9 GM/DL (32-36); Mean Corpuscular Volume 84.2 FL (87-102); Mean Platelet Volume 9.3 FL (9.6-12.0); Monocytes % 8.7 % (1.7-12.7); Neutrophils % 56.3 % (38.7-73.9); Platelet Count 203 T/CUMM (130-400); Red Blood Count 4.44 MC/CUMM (3.8-5.5); White Blood Count 7.2 T/CUMM (4-12)
[2021-02-03 11:40] LABS: INR 0.9; PT Patient Result 10.3 SECS (10.5-12.0); Partial Thromboplastin Time 25.6 SECS (23.9-33.8)
[2021-02-03 11:45] LABS: Albumin 3.7 G/DL (3.4-5.0); Bilirubin,Total 0.4 MG/DL (0.20-1.00); Calcium 8.9 MG/DL (8.5-10.1); Osmolality,Calculated 277.7 MOS/KG (273-304); Potassium 4.8 MMOL/L (3.5-5.1); Total Protein 7.3 G/DL (6.4-8.2)
[2021-02-03] MEDS ORDERED: NITROGLYCERIN SL 0.4 MG TABLET SL PRN (11:51)
[2021-02-03] MEDS ORDERED: ENOXAPARIN 100 MG/ML SYRINGE SUBCUT STA (11:51)
[2021-02-03 13:25] LABS: Hypochromasia 1+; Lymphocytes 32 % (20-55); Platelet Estimate Normal; Polychromasia Slight; Segmented Neutrophils 62 % (50-85); Total Cells Counted 100
[2021-02-03] MEDS ORDERED: diphenhydrAMINE CAP 25 MG CAPSULE PO PRN (13:43)
[2021-02-03] MEDS ORDERED: MAGNESIUM SULF RIDER 4 GM/100 ML PREMIX IV PRN (13:43)
[2021-02-03] MEDS ORDERED: ONDANSETRON 4 MG/2 ML VIAL IV PRN (13:43)
[2021-02-03] MEDS ORDERED: ALUMINUM/MAGNES/SIMETH MAX STR 30 ML UDCUP PO PRN (13:43)
[2021-02-03] MEDS ORDERED: ZALEPLON 5 MG CAPSULE PO PRN (13:43)
[2021-02-03] MEDS ORDERED: LACTULOSE 20 GM/30 ML UDCUP PO PRN (13:43)
[2021-02-03] MEDS ORDERED: MAGNESIUM SULF RIDER 2 GM/50 ML PREMIX IV PRN (13:43)
[2021-02-03] MEDS ORDERED: SIMETHICONE CHEW 125 MG TABLET PO PRN (13:43)
[2021-02-03] MEDS ORDERED: hydrALAZINE 20 MG/1 ML VIAL IV PRN (13:43)
[2021-02-03] MEDS ORDERED: POTASSIUM CHLORIDE 20 MEQ TABLET PO PRN (13:43)
[2021-02-03] MEDS ORDERED: CALCIUM CARBONATE CHEW 500 MG TABLET PO PRN (13:43)
[2021-02-03] MEDS ORDERED: ACETAMINOPHEN 325 MG TABLET PO PRN (13:43)
[2021-02-03] MEDS ORDERED: BISACODYL 5 MG TABLET PO PRN (13:43)
[2021-02-03] MEDS ORDERED: DEXTROSE 50% 25 GM/50 ML VIAL IV PRN (14:53)
[2021-02-03] MEDS ORDERED: GLUCAGON 1 MG VIAL IM PRN (14:53)
[2021-02-03] MEDS: GABAPENTIN 300 MG CAPSULE PO SCH ×2 (16:01→21:11)
[2021-02-03] MEDS: INSULIN LISPRO 100 UNIT/ML SUBCUT SCH ×2 (18:32→21:13)
[2021-02-03] MEDS: NITROGLYCERIN 2% OINT 1 INCH/GM PACK TOP SCH (18:42)
[2021-02-03] MEDS ORDERED: NON-FORMULARY MEDICATION (Esomeprazole Magnesium [Nexium] 40 mg Capsule,Delayed Release(Dr PO SCH (21:00)
[2021-02-03] MEDS: ATORVASTATIN 40 MG TABLET PO SCH (21:11)
[2021-02-03] MEDS: NEBIVOLOL 10 MG TABLET PO SCH (21:11)
[2021-02-03] MEDS: DILTIAZEM CD 120 MG CAPSULE PO SCH (21:11)
[2021-02-03] MEDS: traMADol 50 MG TABLET PO PRN (21:12)
[2021-02-03] MEDS: CHOLECALCIFEROL 5,000 UNIT TABLET PO SCH (21:12)
[2021-02-03] MEDS: ESCITALOPRAM 10 MG TABLET PO SCH (21:12)
[2021-02-03] MEDS: MORPHINE 2 MG/1 ML SYRINGE IV PRN (22:24)
[2021-02-04] MEDS: NITROGLYCERIN 2% OINT 1 INCH/GM PACK TOP SCH ×5 (00:42→23:10)
[2021-02-04] MEDS: PANTOPRAZOLE 40 MG TABLET PO SCH (05:52)
[2021-02-04] MEDS ORDERED: SODIUM CHLORIDE 0.9% 1,000 ML IV SCH (07:30)
[2021-02-04 07:33] LABS: Blood Urea Nitrogen 12 MG/DL (7-18); Carbon Dioxide 25 MMOL/L (21-32); Estimated Glom Filtration Rate 98 ML/MIN; Glucose 144 MG/DL (74-106); HDL Cholesterol 27 MG/DL (40-60); Osmolality,Calculated 275.8 MOS/KG (273-304); Potassium 4.1 MMOL/L (3.5-5.1); Risk Ratio 9.15; Sodium 137 MMOL/L (136-145); Triglycerides 207 MG/DL (2-150); VLDL Cholesterol 41.4 MG/DL
[2021-02-04 07:42] LABS: Basophils % 0.2 % (0.0-0.8); Eosinophils # 0.1 10*3/uL (0.0-0.87); Eosinophils % 1.2 % (0.00-10.9); Hematocrit 40.4 VOL% (35.7-47.0); Hemoglobin 12.8 GM/DL (12.0-16.0); Immature Granulocytes % 0.2 %; Immature Granulocytes Absolute 0.01 #; Lymphocytes # 2.1 10*3/uL (1.4-4.0); Lymphocytes % 33.1 % (21.3-54.2); Mean Corpuscular HGB Conc 31.7 GM/DL (32-36); Mean Corpuscular Volume 87.6 FL (87-102); Mean Platelet Volume 9.4 FL (9.6-12.0); Monocytes % 10.7 % (1.7-12.7); Neutrophils % 54.6 % (38.7-73.9); Platelet Count 192 T/CUMM (130-400); Red Blood Count 4.61 MC/CUMM (3.8-5.5); Red Cell Distribution Width 14.2 % (9.3-17.3); White Blood Count 6.5 T/CUMM (4-12)
[2021-02-04] MEDS: INSULIN LISPRO 100 UNIT/ML SUBCUT SCH ×4 (08:08→20:30)
[2021-02-04] MEDS ORDERED: DIAZEPAM 5 MG TABLET PO ONE (08:30)
[2021-02-04] MEDS ORDERED: diphenhydrAMINE CAP 25 MG CAPSULE PO ONE (08:30)
[2021-02-04] MEDS: DILTIAZEM CD 120 MG CAPSULE PO SCH ×2 (08:35→20:29)
[2021-02-04] MEDS: ISOSORBIDE MONONITRATE 30 MG TABLET PO SCH (08:35)
[2021-02-04] MEDS ORDERED: HEPARIN/NACL 0.9% 2 UNITS/ML 2,000 UNIT/1,000 ML BAG IV ONE (08:46)
[2021-02-04] MEDS ORDERED: LIDOCAINE 1% 20 ML VIAL ONE (08:46)
[2021-02-04] MEDS ORDERED: MIDAZOLAM 2 MG/2 ML VIAL ONE ×2 (08:46→09:25)
[2021-02-04] MEDS ORDERED: fentaNYL 100 MCG/2 ML VIAL ONE (08:47)
[2021-02-04] MEDS ORDERED: ASPIRIN 325 MG TABLET PO SCH (09:00)
[2021-02-04] MEDS ORDERED: CLOPIDOGREL 75 MG TABLET PO SCH (09:00)
[2021-02-04] MEDS ORDERED: BIVALIRUDIN 250 MG VIAL IV ONE (09:13)
[2021-02-04] MEDS ORDERED: CLOPIDOGREL 300 MG TABLET ONE (09:55)
[2021-02-04] MEDS ORDERED: TICAGRELOR 90 MG TABLET ONE (10:05)
[2021-02-04] MEDS ORDERED: MORPHINE 10 MG/1 ML VIAL ONE (12:39)
[2021-02-04] MEDS: MORPHINE 2 MG/1 ML SYRINGE IV PRN (12:43)
[2021-02-04] MEDS: FUROSEMIDE 40 MG TABLET PO SCH (13:56)
[2021-02-04] MEDS: GABAPENTIN 300 MG CAPSULE PO SCH ×3 (13:56→20:29)
[2021-02-04 14:52] LABS: Bacteria,Urine Occasional /HPF (Few); Bilirubin,Urine Negative (Negative); Blood, Urine Small mg/dL (Negative); Glucose,Urine (UA) Negative (Negative); Ketones,Urine Negative (Negative); Nitrite,Urine Negative (Negative); Protein,Urine Negative; RBC,Urine 2 /HPF (0-4); Squamous Epithelial Cell,Urine Occasional /HPF (0-10); Urine Appearance CLEAR (Clear); Urine Color Yellow (Yellow); Urine Specific Gravity 1.054 (1.001-1.035)
[2021-02-04] MEDS: NEBIVOLOL 10 MG TABLET PO SCH (20:28)
[2021-02-04] MEDS: ATORVASTATIN 40 MG TABLET PO SCH (20:29)
[2021-02-04] MEDS: TICAGRELOR 90 MG TABLET PO SCH (20:29)
[2021-02-04] MEDS: ESCITALOPRAM 10 MG TABLET PO SCH (20:29)
[2021-02-04] MEDS: CHOLECALCIFEROL 5,000 UNIT TABLET PO SCH (20:29)
[2021-02-04] MEDS: traMADol 50 MG TABLET PO PRN (21:00)
[2021-02-05] MEDS: NITROGLYCERIN 2% OINT 1 INCH/GM PACK TOP SCH (05:11)
[2021-02-05] MEDS: PANTOPRAZOLE 40 MG TABLET PO SCH (05:48)
[2021-02-05 07:24] LABS: Basophils % 0.3 % (0.0-0.8); Eosinophils % 0.5 % (0.00-10.9); Hematocrit 40.2 VOL% (35.7-47.0); Hemoglobin 13.3 GM/DL (12.0-16.0); Immature Granulocytes % 0.4 %; Immature Granulocytes Absolute 0.03 #; Lymphocytes # 1.9 10*3/uL (1.4-4.0); Lymphocytes % 24.2 % (21.3-54.2); Mean Corpuscular HGB Conc 33.1 GM/DL (32-36); Mean Corpuscular Volume 85.2 FL (87-102); Mean Platelet Volume 9.9 FL (9.6-12.0); Monocytes % 12.3 % (1.7-12.7); Neutrophils % 62.3 % (38.7-73.9); Platelet Count 196 T/CUMM (130-400); Red Blood Count 4.72 MC/CUMM (3.8-5.5); Red Cell Distribution Width 13.8 % (9.3-17.3); White Blood Count 7.6 T/CUMM (4-12)
[2021-02-05 07:41] LABS: Osmolality,Calculated 273.8 MOS/KG (273-304); Potassium 4.1 MMOL/L (3.5-5.1)
[2021-02-05] MEDS: FUROSEMIDE 40 MG TABLET PO SCH (08:29)
[2021-02-05] MEDS: DILTIAZEM CD 120 MG CAPSULE PO SCH (08:30)
[2021-02-05] MEDS: ISOSORBIDE MONONITRATE 30 MG TABLET PO SCH (08:30)
[2021-02-05] MEDS: TICAGRELOR 90 MG TABLET PO SCH (08:30)
[2021-02-05] MEDS: GABAPENTIN 300 MG CAPSULE PO SCH (08:31)
[2021-02-05] MEDS ORDERED: ENOXAPARIN 40 MG/0.4 ML SYRINGE SUBCUT SCH (09:00)
[2021-02-05] MEDS ORDERED: ASPIRIN EC 81 MG TABLET PO SCH (09:00)
[2021-02-05] MEDS: INSULIN LISPRO 100 UNIT/ML SUBCUT SCH (09:29)
[2021-02-05 12:02] VITALS: BP 133/66
== END 2021-02-05 12:00 | disposition home or self-care (01) ==
LOC: N.EDINP 10:53 → N.ED 10:53 → N.TELES 15:13
PROVIDERS: ADMIT Internal Medicine Cardiovascular Disease; ATTEND Internal Medicine Cardiovascular Disease
PROC: CLCCHCL (ICD-10-PCS; 2021-02-04 09:15)